=== PATIENT | female | born 1980 | race Native Hawaiian/Other Pacific Islander ===

== ENCOUNTER 2016-11-19 15:28 | Emergency (ER) | payer OTHER ==
[~2016-11-19] VITALS: Ht 152.4 cm; Wt 63.9 kg
[~2016-11-19 15:28] MED LIST: ENDOCET 5-3251 EACH PO; IBUPROFEN800 MG PO; NOHOMEMEDS; PRENATAL TABLE1 EAC3 PO; TAMIFLU75 MG PO; ZOFRAN ODT4 MG PO; ZOFRAN8 MG PO
[2016-11-19 16:16] LABS: HEMATOCRIT 39.7 % (36.0-46.0); MCH 29.2 PG (29.0-34.0); MCV 91.3 FL (83-99); MEAN PLAT.VOLUME 10.5 uM^3 (9.5-12.4); PLATELET COUNT 375 K/uL (156-360); RBC DIS.WIDTH-CV 12.8 % (11.8-14.6); RED BLOOD COUNT 4.35 M/uL (3.80-5.20); WHITE BLOOD COUNT 8.1 K/uL (4.1-10.2)
[2016-11-19 16:17] LABS: ADD MIUA? NO; BILIRUBIN NEGATIVE; BLOOD NEGATIVE; COLOR YELLOW ((YELLOW)); GLUCOSE (STRIP) NEGATIVE; KETONES NEGATIVE; LEUKOCYTES NEGATIVE; NITRITE NEGATIVE; PROTEIN (STRIP) NEGATIVE; SPECIFIC GRAVITY 1.018 (1.000-1.030); UCUL ADDED? NO; UROBILINOGEN 0.2 MG/DL (0.2-1.0)
[2016-11-19 16:32] LABS: CHLORIDE 107 mEq/L (99-109); POTASSIUM 3.5 mEq/L (3.7-5.4); SODIUM 143 mEq/L (136-147)
[2016-11-19 16:34] LABS: GLUCOSE 93 mg/dL (70-99)
[2016-11-19 16:35] LABS: ANION GAP 7 MEQ/L (2-14)
[2016-11-19 16:36] LABS: TOTAL BILIRUBIN 0.3 mg/dL (0.0-1.0)
[2016-11-19 16:37] LABS: ALKALINE PHOSPHATASE 86 IU/L (3-129)
[2016-11-19 16:38] LABS: GFR ESTIMATE (CALCULATED) > 59 mL/min/
[2016-11-19 16:39] LABS: UREA NITROGEN (BUN) 11 mg/dL (9-23)
[2016-11-19 16:47] LABS: QUANTITATIVE HCG < 4.0 MIU/ML
[2016-11-19] MEDS ORDERED: NORCO 5/3251 TABLET PO (20:20)
[2016-11-19] MEDS ORDERED: ZOFRAN ODT4 MG PO (20:20)
[2016-11-19 20:32] VITALS: BP 134/65
== END 2016-11-19 20:34 | disposition home or self-care (01) ==
LOC: EME 15:28
DX: R10.31 Right lower quadrant pain (principal)
CPT/HCPCS: 74177; 80053; 81003; 84702; 85027; 99281; 99284; J2270; J2405; J7030

== ENCOUNTER 2017-03-26 09:14 | Day surgery (SDC) | payer OTHER ==
[~2017-03-26] VITALS: Ht 152.4 cm; Wt 64.0 kg
[~2017-03-26 09:14] MED LIST changes: +NORCO 5/3251 TABLET PO; +[UNRECOGNIZED DRUG - OTHER] PO
[2017-03-26 10:06] LABS: EOSINOPHIL (%) 0.8 % (0-5); EOSINOPHIL COUNT 0.1 K/uL (0-0.3); HEMATOCRIT 37.6 % (36.0-46.0); IMMATURE GRANULOCYTE (%) 0.6 % (0.0-0.7); IMMATURE GRANULOCYTE COUNT 0.1 K/uL; INSTRUMENT ABS NEUTROPHIL CT 6.6 K/uL; LYMPHOCYTE COUNT 1.5 K/uL (1.0-2.8); MCH 29.5 PG (29.0-34.0); MCHC 33.2 G/DL (30.0-36.0); MCV 88.7 FL (83-99); MEAN PLAT.VOLUME 10.1 uM^3 (9.5-12.4); MONOCYTE (%) 5.1 % (3-12); MONOCYTE COUNT 0.5 K/uL (0-0.8); NEUTROPHIL (%) 75.8 % (45-76); NEUTROPHIL COUNT 6.6 K/uL (1.8-6.4); PLATELET COUNT 348 K/uL (156-360); RBC DIS.WIDTH-CV 12.6 % (11.8-14.6); RBC DIS.WIDTH-SD 41.1 % (39-53); RED BLOOD COUNT 4.24 M/uL (3.80-5.20); WHITE BLOOD COUNT 8.8 K/uL (4.1-10.2)
[2017-03-26 10:21] VITALS: BP 112/66
[2017-03-26] MEDS ORDERED: HYDROCODON-ACE1 EAC7 PO (12:59)
[2017-03-26 13:55] VITALS: BP 112/65
[2017-03-26 14:48] VITALS: BP 114/58
== END 2017-03-26 14:49 | disposition home or self-care (01) ==
LOC: SDC 09:14
PROVIDERS: Obstetrics & Gynecology
PROC: 10D17ZZ Extraction of Products of Conception, Retained, Via Natural or Artificial Opening (ICD-10-PCS; principal; 2017-03-26)
DX: O02.1 Missed abortion (principal); Z3A.10 10 weeks gestation of pregnancy; D56.9 Thalassemia, unspecified
CPT/HCPCS: 85025; 86900; 86901; 88305; J0330; J1100; J1885; J2250; J2405; J3010; J7120

== ENCOUNTER 2017-03-30 15:03 | Day surgery (SDC) | payer OTHER ==
[~2017-03-30] VITALS: Ht 152.4 cm; Wt 64.5 kg
[~2017-03-30 15:03] MED LIST changes: +HYDROCODON-ACE1 EAC7 PO
[2017-03-30 15:40] VITALS: BP 120/69
[2017-03-30] MEDS ORDERED: MOTRIN800 MG PO (16:32)
[2017-03-30] MEDS ORDERED: HYDROCODON-ACE1 EAC7 PO (16:32)
[2017-03-30] MEDS ORDERED: ZOFRAN8 MG PO (17:16)
[2017-03-30] MEDS ORDERED: CYTOTEC200 MCG PO (17:16)
[2017-03-30 18:25] VITALS: BP 115/58
[2017-03-30 19:40] VITALS: BP 107/67
== END 2017-03-30 19:49 | disposition home or self-care (01) ==
LOC: SDC 15:03
PROC: 10D17ZZ Extraction of Products of Conception, Retained, Via Natural or Artificial Opening (ICD-10-PCS; principal; 2017-03-30)
DX: O03.1 Delayed or excessive hemorrhage following incomplete spontaneous abortion (principal); Z3A.11 11 weeks gestation of pregnancy; K21.9 Gastro-esophageal reflux disease without esophagitis; R11.2 Nausea with vomiting, unspecified
CPT/HCPCS: 88305; J1100; J1885; J2405; J2550; J2765; J3010

== ENCOUNTER 2018-01-31 12:37 | Emergency (ER) | payer OTHER ==
[~2018-01-31] VITALS: Ht 152.4 cm; Wt 70.0 kg
[~2018-01-31 12:37] MED LIST changes: +CYTOTEC200 MCG PO; +MOTRIN800 MG PO
[2018-01-31] MEDS ORDERED: PYRIDIUM200 MG PO (14:24)
[2018-01-31] MEDS ORDERED: KEFLEX500 MG PO (14:24)
[2018-01-31 14:28] LABS: APPEARANCE CLOUDY ((CLEAR)); BILIRUBIN NEGATIVE; BLOOD LARGE; COLOR YELLOW ((YELLOW)); GLUCOSE (STRIP) NEGATIVE; KETONES NEGATIVE; LEUKOCYTES LARGE; NITRITE NEGATIVE; PROTEIN (STRIP) 30; SPECIFIC GRAVITY 1.006 (1.000-1.030); UROBILINOGEN 0.2 MG/DL (0.2-1.0)
[2018-01-31 14:46] LABS: BACTERIA 1+ /HPF; EPITHELIAL CELLS 1+ /HPF; MUCUS NONE SEEN /LPF; RED BLOOD CELLS TNTC /HPF (0-5); UCUL ADDED? YES; WHITE BLOOD CELLS TNTC /HPF (0-5)
[2018-01-31 15:05] VITALS: BP 130/88
== END 2018-01-31 15:05 | disposition home or self-care (01) ==
LOC: EME 12:37
PROVIDERS: Nurse Practitioner Family
DX: N30.91 Cystitis, unspecified with hematuria (principal)
CPT/HCPCS: 81003; 81025; 87077; 87086; 87186; 99281; 99284